=== PATIENT | male | born 1965 | race Caucasian/White ===

== ENCOUNTER 2020-05-05 12:01 | Emergency (ER) | payer OTHER ==
[2020-05-05 12:10] VITALS: BP 125/85; PULSE 101; RESP 18; TEMP 98.6
[2020-05-05] MEDS ORDERED: cefTRIAXone 1,000 MG VIAL (IM USE) IM STA (12:46)
[2020-05-05] MEDS ORDERED: ONDANSETRON 4 MG ODT STARTER PACK 2 TAB BTL PO STA (12:46)
[2020-05-05] MEDS ORDERED: AMOXIC-POT CLAV 875MG STARTER PACK 2 TAB BTL PO STA (12:53)
--- NOTE | 2020-05-05 12:54 | ED ---
ENT HPI - General Chief complaint: Dental/Oral Stated complaint: facial swelling Time Seen by Provider: 05/05/20 12:16 Source: patient, RN notes reviewed, old records reviewed Mode of arrival: ambulatory Limitations: no limitations - History of Present Illness Initial comments: This is a 54-year-old male presents to the ER today for evaluation for left- sided facial swelling, left side is sinus pain and tenderness Patient reports symptoms started 2 days ago starting with the gumline being swollen. Denies a fever. Denies any pain with extra ocular movements. He denies any chest pain shortness breath. She does complain of nausea. - Related Data Previous Rx's Medication Instructions Recorded Amoxic-Pot Clav 875-125Mg 1 tab PO Q12HR #20 tablet 05/05/20 [Augmentin 875-125] Allergies Allergy/AdvReac Type Severity Reaction Status Date / Time No Known Allergies Allergy Verified 05/05/20 12:10 Review of Systems ROS Statement: Those systems with pertinent positive or pertinent negative responses have been documented in the HPI. ROS Other: All systems not noted in ROS Statement are negative. Past Medical History Additional Past Medical History / Comment(s): back pain History of Any Multi-Drug Resistant Organisms: None Reported Past Surgical History: No Surgical Hx Reported Past Psychological History: No Psychological Hx Reported Smoking Status: Current every day smoker Past Alcohol Use History: None Reported Past Drug Use History: Marijuana General Exam - General Exam Comments Initial Comments: Alert and oriented 54-year-old male. Limitations: no limitations General appearance: alert, in no apparent distress Head exam: Present: atraumatic, normocephalic, normal inspection Eye exam: Present: normal appearance, PERRL, EOMI. Absent: scleral icterus, conjunctival injection, periorbital swelling ENT exam: Present: normal exam, other (tenderness over left maxillary sinus with swelling) Neck exam: Present: normal inspection. Absent: tenderness, meningismus, lymphadenopathy Respiratory exam: Present: normal lung sounds bilaterally. Absent: respiratory distress, wheezes, rales, rhonchi, stridor Extremities exam: Present: normal inspection, full ROM, normal capillary refill. Absent: tenderness, pedal edema, joint swelling, calf tenderness Back exam: Present: normal inspection Neurological exam: Present: alert, oriented X3, CN II-XII intact Psychiatric exam: Present: normal affect, normal mood Course Vital Signs 05/05/20 05/05/20 12:07 13:02 Temperature 98.6 F 98.6 F Pulse Rate 101 H 101 H Respiratory 18 18 Rate Blood Pressure 125/85 125/85 O2 Sat by Pulse 99 99 Oximetry Medical Decision Making - Medical Decision Making This is a 54-year-old male presents emergency department today for left-sided facial pain and swelling 2 days. At this time Patient has tenderness and pain over the maxillary sinus. Discussed treatment for sinusitis with antibiotic. He was given IM Rocephin as well as Zofran for nausea and emergency department. Advised the Patient to return if he has high fevers worsening pain or symptoms despite antibiotics after 2 days. We'll discharge the Patient with Augmentin and advised close follow up with PCP. All questions answered. Disposition Clinical Impression: Sinusitis Disposition: HOME SELF-CARE Condition: Good Instructions (If sedation given, give patient instructions): Sinusitis (ED) Additional Instructions: Please use medication as discussed. Please follow up with family doctor if symptoms have not improved over the next two days. Please return to the emergency room if your symptoms increase or worsen or for any other concerns. Prescriptions: Amoxic-Pot Clav 875-125Mg [Augmentin 875-125] 1 tab PO Q12HR #20 tablet Is patient prescribed a controlled substance at d/c from ED?: No Referrals: None,Stated [Primary Care Provider] - 1-2 days Time of Disposition: 12:53
== END 2020-05-05 13:03 | disposition home or self-care (01) ==
LOC: EC 12:01
DX: J32.9 Chronic sinusitis, unspecified (principal); R11.0 Nausea; F17.200 Nicotine dependence, unspecified, uncomplicated
CPT/HCPCS: 99283; 96372; J0696; S0119

== ENCOUNTER 2023-06-24 05:53 | Emergency (ER) | payer OTHER ==
[2023-06-24] MEDS: SODIUM CHLORIDE 0.9% 1,000 ML IV STA (06:33)
[2023-06-24] MEDS: ONDANSETRON 4 MG/2 ML VIAL IVP STA (06:33)
--- NOTE | 2023-06-24 06:35 | ED ---
GI Bleed HPI - General Chief complaint: GI Bleed Stated complaint: Rectal bleeding Time Seen by Provider: 06/24/23 06:10 Source: patient, RN notes reviewed Mode of arrival: ambulatory Limitations: no limitations - History of Present Illness Initial comments: This is a 57-year-old male who presents to the emergency department for rectal bleeding. States that this has been occurring intermittently for the last 5 days. He has a history of bleeding from hemorrhoids, which he believes is the cause of this. Denies any pain associated with this. He has been using [id number] Preparation H. States that when he woke up this morning he felt like he needed to pass gas, and in the process a large amount of blood was produced. Not taking any blood thinners. While being triaged in the nursing villa and explaining his symptoms, patient had a syncopal episode. He lost control of his bladder in the process and became diaphoretic. Patient also fe els nauseous. - Related Data Previous Rx's Medication Instructions Recorded Amoxic-Pot Clav 875-125Mg 1 tab PO Q12HR #20 tablet 05/05/20 [Augmentin 875-125] Hydrocortisone Suppository 25 mg RECTAL BID #24 suppositor 06/24/23 [Anusol-Hc] lisa Rodriguez [Tucks Medicated Pads] 1 pad TOPICAL DIRECTED PRN #100 06/24/23 pad Allergies Allergy/AdvReac Type Severity Reaction Status Date / Time No Known Allergies Allergy Verified 06/24/23 06:03 Review of Systems ROS Statement: Those systems with pertinent positive or pertinent negative responses have been documented in the HPI. ROS Other: All systems not noted in ROS Statement are negative. Past Medical History Additional Past Medical History / Comment(s): back pain History of Any Multi-Drug Resistant Organisms: None Reported Past Surgical History: No Surgical Hx Reported Past Psychological History: No Psychological Hx Reported Smoking Status: Current every day smoker Past Alcohol Use History: None Reported Past Drug Use History: Marijuana General Exam Limitations: no limitations General appearance: alert, in no apparent distress Head exam: Present: atraumatic, normocephalic, normal inspection Respiratory exam: Present: normal lung sounds bilaterally. Absent: respiratory distress, wheezes, rales, rhonchi, stridor Cardiovascular Exam: Present: regular rate, normal rhythm, normal heart sounds. Absent: systolic murmur, diastolic murmur, rubs, gallop, clicks Rectal exam: Present: other (Thrombosed external hemorrhoid with evidence of recent active bleeding) Neurological exam: Present: alert, oriented X3, CN II-XII intact Psychiatric exam: Present: normal affect, normal mood Course Vital Signs 06/24/23 06/24/23 06/24/23 06:04 06:22 07:07 Temperature 97.7 F Pulse Rate 83 75 65 Respiratory 22 17 16 Rate Blood Pressure 115/70 116/72 116/76 O2 Sat by Pulse 98 97 98 Oximetry Medical Decision Making - Medical Decision Making This is a 57 year old male who presents to the emergency department for rectal bleeding. Was pt. sent in by a medical professional or institution? @ -No Did you speak to anyone other than the patient for history? @ -No Did you review nursing and triage notes? @ -Yes, and I agree, it is accurate with regards to the patient's symptoms. Were old charts reviewed? @ -No Differential Diagnosis? @ -Differential GI Bleed: Esophageal varices, aortoenteric fistula, Emily-Jaffe, gastritis, peptic ulcer disease, diverticulosis, inflammatory bowel disease, hemorrhoids, fissure, c olitis, malignancy, Meckels diverticulum, this is not meant to be an all- inclusive list. EKG interpreted by me (3pts min.)? @ -EKG interpreted by me demonstrating the following: Sinus rhythm. Ventricular rate 70 bpm, MS interval 152 ms, QRS duration 98 ms, QTc 401 ms. X-rays interpreted by me (1pt min.)? @ -Not obtained CT interpreted by me (1pt min.)? @ -Not obtained U/S interpreted by me (1pt. min.)? @ -Not obtained What testing was considered but not performed? (CT, X-rays, U/S, labs)? Why? @ -None What meds were considered but not given? Why? @ -None Did you discuss the management of the patient with other professionals? @ -No Did you reconcile home meds? @ -No Was smoking cessation discussed for >3mins.? @ -I discussed smoking cessation for greater than 3 minutes. The risk of smoking were discussed with the patient including but not limited to risks of cancer, stroke, coronary artery disease and COPD. Also discussed with patient were multiple methods of quitting smoking. Lastly we discussed the financial cost of smoking. Was critical care preformed (if so, how long)? @ -No Were there social determinants of health that impacted care today? How? (Homelessness, low income, unemployed, alcoholism, drug addiction, transportation, low edu. Level, literacy, decrease access to med. care, penitentiary, rehab)? @ -No Was there de-escalation of care discussed even if they declined? (Discuss DNR or withdrawal of care, Hospice)? @ -No What co-morbidities impacted this encounter? (DM, HTN, Smoking, COPD, CAD, Cancer, CVA, Hep., AIDS, mental health diagnosis, sleep apnea, morbid obesity)? @ -Smoking Was patient admitted / discharged? @ -Discharged. On exam, patient had an external hemorrhoid that was thrombosed with minor active bleeding. Lab work obtained and found to be unremarkable. Advised that we are not going to try to excise or manipulate the hemorrhoid in the emergency department due to the risk of making it worse. Patient is also not in any pain, he is only dealing with the residual bleeding, which is not severe at this time. Prescription for hydrocortisone suppositories and witch delphine pads provided with dosing instructions reviewed. Advised sitz bath's, cool compresses, Preparation H, and stool softeners to avoid constipation and straining, which we discussed can make this worse. Information for general surgery follow-up provided. Patient discharged home in stable condition. Undiagnosed new problem with uncertain prognosis? @ -None Drug Therapy requiring intensive monitoring for toxicity (Heparin, Nitro, Insulin, Cardizem)? @ -None Were any procedures done? @ -None Diagnosis/symptom? @ -Bleeding external hemorrhoid Acute, or Chronic, or Acute on Chronic? @ -Acute Uncomplicated (without systemic symptoms) or Complicated (systemic symptoms)? @ -Uncomplicated Side effects of treatment? @ -None Exacerbation, Progression, or Severe Exacerbation] @ -Not applicable Poses a threat to life or bodily function? @ -No Return precautions reviewed in depth, the patient is instructed to return to the emergency department with any new, worsening, or concerning symptoms. Patient verbalized understanding. This case was discussed in detail with the attending ED physician, Dr. Prince. Presentation, findings, and treatment plan discussed in detail as well. - Lab Data Result diagrams: 06/24/23 06:30 06/24/23 06:30 Lab Results 06/24/23 06/24/23 06/24/23 Range/Units 06:30 06:30 06:30 WBC 9.7 (3.8-10.6) k/uL RBC 4.87 (4.30-5.90) m/uL Hgb 14.9 (13.0-17.5) gm/dL Hct 43.9 (39.0-53.0) % MCV 90.0 (80.0-100.0) fL MCH 30.5 (25.0-35.0) pg MCHC 33.9 (31.0-37.0) g/dL RDW 14.8 (11.5-15.5) % Plt Count 259 (150-450) k/uL MPV 8.3 Neutrophils % 49 % Lymphocytes % 40 % Monocytes % 5 % Eosinophils % 3 % Basophils % 1 % Neutrophils # 4.8 (1.3-7.7) k/uL Lymphocytes # 3.8 (1.0-4.8) k/uL Monocytes # 0.5 (0-1.0) k/uL Eosinophils # 0.3 (0-0.7) k/uL Basophils # 0.1 (0-0.2) k/uL PT 10.1 (10.0-12.5) sec INR 0.9 (<1.2) APTT 21.6 L (22.0-30.0) sec Sodium 138 (137-145) mmol/L Potassium 3.8 (3.5-5.1) mmol/L Chloride 111 H (98-107) mmol/L Carbon Dioxide 18 L (22-30) mmol/L Anion Gap 9 mmol/L BUN 20 (9-20) mg/dL Creatinine 1.03 (0.66-1.25) mg/dL Est GFR (CKD-EPI)AfAm >90 (>60 ml/min/1.73 sqM) Est GFR (CKD-EPI)NonAf 81 (>60 ml/min/1.73 sqM) Glucose 128 H (74-99) mg/dL Plasma Lactic Acid Yang (0.7-2.0) mmol/L Calcium 9.2 (8.4-10.2) mg/dL Magnesium 2.2 (1.6-2.3) mg/dL Total Bilirubin 0.7 (0.2-1.3) mg/dL AST 25 (17-59) U/L ALT 15 (4-49) U/L Alkaline Phosphatase 104 (38-126) U/L Troponin I (0.000-0.034) ng/mL Total Protein 7.0 (6.3-8.2) g/dL Albumin 4.1 (3.5-5.0) g/dL Blood Type Blood Type Confirm Blood Type Recheck Bld Type Recheck Status Antibody Screen Spec Expiration Date 06/24/23 06/24/23 06/24/23 Range/Units 06:30 06:30 06:30 WBC (3.8-10.6) k/uL RBC (4.30-5.90) m/uL Hgb (13.0-17.5) gm/dL Hct (39.0-53.0) % MCV (80.0-100.0) fL MCH (25.0-35.0) pg MCHC (31.0-37.0) g/dL RDW (11.5-15.5) % Plt Count (150-450) k/uL MPV Neutrophils % % Lymphocytes % % Monocytes % % Eosinophils % % Basophils % % Neutrophils # (1.3-7.7) k/uL Lymphocytes # (1.0-4.8) k/uL Monocytes # (0-1.0) k/uL Eosinophils # (0-0.7) k/uL Basophils # (0-0.2) k/uL PT (10.0-12.5) sec INR (<1.2) APTT (22.0-30.0) sec Sodium (137-145) mmol/L Potassium (3.5-5.1) mmol/L Chloride (98-107) mmol/L Carbon Dioxide (22-30) mmol/L Anion Gap mmol/L BUN (9-20) mg/dL Creatinine (0.66-1.25) mg/dL Est GFR (CKD-EPI)AfAm (>60 ml/min/1.73 sqM) Est GFR (CKD-EPI)NonAf (>60 ml/min/1.73 sqM) Glucose (74-99) mg/dL Plasma Lactic Acid Yang 1.4 (0.7-2.0) mmol/L Calcium (8.4-10.2) mg/dL Magnesium (1.6-2.3) mg/dL Total Bilirubin (0.2-1.3) mg/dL AST (17-59) U/L ALT (4-49) U/L Alkaline Phosphatase (38-126) U/L Troponin I <0.012 (0.000-0.034) ng/mL Total Protein (6.3-8.2) g/dL Albumin (3.5-5.0) g/dL Blood Type O Negative Blood Type Confirm Blood Type Recheck No Previous Record Bld Type Recheck Status CABO Indicated Antibody Screen NEGATIVE Spec Expiration Date 06/27/2023 - 232906/24/23 Range/Units 06:37 WBC (3.8-10.6) k/uL RBC (4.30-5.90) m/uL Hgb (13.0-17.5) gm/dL Hct (39.0-53.0) % MCV (80.0-100.0) fL MCH (25.0-35.0) pg MCHC (31.0-37.0) g/dL RDW (11.5-15.5) % Plt Count (150-450) k/uL MPV Neutrophils % % Lymphocytes % % Monocytes % % Eosinophils % % Basophils % % Neutrophils # (1.3-7.7) k/uL Lymphocytes # (1.0-4.8) k/uL Monocytes # (0-1.0) k/uL Eosinophils # (0-0.7) k/uL Basophils # (0-0.2) k/uL PT (10.0-12.5) sec INR (<1.2) APTT (22.0-30.0) sec Sodium (137-145) mmol/L Potassium (3.5-5.1) mmol/L Chloride (98-107) mmol/L Carbon Dioxide (22-30) mmol/L Anion Gap mmol/L BUN (9-20) mg/dL Creatinine (0.66-1.25) mg/dL Est GFR (CKD-EPI)AfAm (>60 ml/min/1.73 sqM) Est GFR (CKD-EPI)NonAf (>60 ml/min/1.73 sqM) Glucose (74-99) mg/dL Plasma Lactic Acid Yang (0.7-2.0) mmol/L Calcium (8.4-10.2) mg/dL Magnesium (1.6-2.3) mg/dL Total Bilirubin (0.2-1.3) mg/dL AST (17-59) U/L ALT (4-49) U/L Alkaline Phosphatase (38-126) U/L Troponin I (0.000-0.034) ng/mL Total Protein (6.3-8.2) g/dL Albumin (3.5-5.0) g/dL Blood Type Blood Type Confirm O Negative Blood Type Recheck Bld Type Recheck Status Antibody Screen Spec Expiration Date Disposition Clinical Impression: Nicotine dependence, External hemorrhoid, bleeding Disposition: HOME SELF-CARE Instructions (If sedation given, give patient instructions): Hemorrhoids (ED) Additional Instructions: Return to the emergency department with any new, worsening, or concerning symptoms. Use the Proctosol cream provided on the hemorrhoid 2-4 times daily. Continue to use the Preparation H 4 times daily as well. Apply the hydrocorti sone suppositories twice daily and use the witch delphine pads after each bowel movement or up to 6 times daily. Take sitz bath's and apply cool compresses. Increase your dietary fiber and take a stool softener to prevent straining and constipation. Follow up with your primary care provider in 1-2 days. Contact the general surgery office listed below for a follow up appointment. Prescriptions: Hydrocortisone Suppository [Anusol-Hc] 25 mg RECTAL BID #24 suppositor witch Delphine [Tucks Medicated Pads] 1 pad TOPICAL DIRECTED PRN #100 pad PRN Reason: Hemorrhoids Is patient prescribed a controlled substance at d/c from ED?: No Referrals: None,Stated [Primary Care Provider] - 1-2 days Anand Mohamud MD [STAFF PHYSICIAN] - 1-2 days Time of Disposition: 07:46
[2023-06-24 06:47] LABS: Basophils # (A) 0.1 k/uL (0-0.2); Basophils % (A) 1 %; Eosinophils # (A) 0.3 k/uL (0-0.7); Eosinophils % (A) 3 %; HCT 43.9 % (39.0-53.0); HGB 14.9 gm/dL (13.0-17.5); Lymphocytes # (A) 3.8 k/uL (1.0-4.8); Lymphocytes % (A) 40 %; MCH 30.5 pg (25.0-35.0); MCHC 33.9 g/dL (31.0-37.0); Mean Platelet Volume 8.3; Monocytes # (A) 0.5 k/uL (0-1.0); Monocytes % (A) 5 %; Neutrophils # (A) 4.8 k/uL (1.3-7.7); Neutrophils % (A) 49 %; Platelet Count 259 k/uL (150-450); RBC 4.87 m/uL (4.30-5.90); RDW 14.8 % (11.5-15.5); WBC 9.7 k/uL (3.8-10.6)
[2023-06-24] MEDS: HYDROCORTISONE 2.5% RECTAL CREAM 30 GM TUBE RECTAL STA (07:00)
[2023-06-24 07:06] LABS: INR 0.9 (<1.2); Prothrombin Time 10.1 sec (10.0-12.5)
[2023-06-24 07:08] LABS: Partial Thromboplastin Time 21.6 sec (22.0-30.0)
[2023-06-24 07:17] LABS: ALT 15 U/L (4-49); AST 25 U/L (17-59); African American GFR (CKD) >90 (>60 ml/min/1.73 sqM); Albumin 4.1 g/dL (3.5-5.0); Alkaline Phosphatase 104 U/L (38-126); Anion Gap 9 mmol/L; Blood Urea Nitrogen 20 mg/dL (9-20); Calcium 9.2 mg/dL (8.4-10.2); Carbon Dioxide 18 mmol/L (22-30); Chloride 111 mmol/L (98-107); Glucose 128 mg/dL (74-99); Magnesium 2.2 mg/dL (1.6-2.3); Non-African American GFR(CKD) 81 (>60 ml/min/1.73 sqM); Potassium 3.8 mmol/L (3.5-5.1); Sodium 138 mmol/L (137-145); Total Bilirubin 0.7 mg/dL (0.2-1.3)
[2023-06-24] MEDS: ONDANSETRON 4 MG ODT STARTER PACK 2 TAB BTL PO STA (07:57)
[2023-06-24] MEDS: HYDROCORTISONE SUPPOSITORY 25 MG SUPP RECTAL STA (07:58)
[2023-06-24 08:06] VITALS: BP 114/84; PULSE 76; RESP 18; TEMP 98.2
== END 2023-06-24 08:06 | disposition home or self-care (01) ==
LOC: EC 05:53
DX: K64.5 Perianal venous thrombosis (principal); F17.200 Nicotine dependence, unspecified, uncomplicated; F12.90 Cannabis use, unspecified, uncomplicated
CPT/HCPCS: 99285; 96374; 99406; 96361; 36415; 93005; 86900; 86901; 80053; 83605; 83735; 84484; 85025; 85610; 85730; 86850; J2405; S0119

== ENCOUNTER 2024-04-16 16:11 | Emergency (ER) | payer OTHER ==
[2024-04-16 16:23] VITALS: TEMP 98.3
[2024-04-16] MEDS: SODIUM CHLORIDE 0.9% 1,000 ML IV ONE (17:44)
[2024-04-16] MEDS: KETOROLAC 15 MG/ML 1 ML VIAL IVP STA (17:45)
[2024-04-16] MEDS: MORPHINE SULFATE 4 MG/ML SYRINGE IVP STA (17:46)
--- NOTE | 2024-04-16 17:46 | ED ---
Skin/Abscess/FB HPI - General Chief complaint: Skin/Abscess/Foreign Body Stated complaint: spider bite,arm swelling L Time Seen by Provider: 04/16/24 17:05 Source: patient Mode of arrival: ambulatory Limitations: no limitations - History of Present Illness Initial comments: 58-year-old male senting with chief complaint of pain and swelling to the left arm. States that a few days ago he noticed a small bump on posterior forearm which he assumed was a bug bite. It is that yesterday was a bit larger and more painful and today it is much larger and extremely painful. He has pain that travels up his arm. No fevers. The area is quite firm red as well. He was able to express a very small amount of pus earlier, no further drainage - Related Data Previous Rx's Medication Instructions Recorded Amoxic-Pot Clav 875-125Mg 1 tab PO Q12HR #20 tablet 05/05/20 [Augmentin 875-125] Hydrocortisone Suppository 25 mg RECTAL BID #24 suppositor 06/24/23 [Anusol-Hc] witch Michael [Tucks Medicated Pads] 1 pad TOPICAL DIRECTED PRN #100 06/24/23 pad Cephalexin [Keflex] 500 mg PO Q6HR 10 Days #40 cap 04/16/24 Sulfamethox-Tmp 800-160Mg [Bactrim 1 tab PO Q12HR 10 Days #20 tab 04/16/24 DS 800-160 mg] Allergies Allergy/AdvReac Type Severity Reaction Status Date / Time No Known Allergies Allergy Verified 04/16/24 16:23 Review of Systems ROS Statement: Those systems with pertinent positive or pertinent negative responses have been documented in the HPI. ROS Other: All systems not noted in ROS Statement are negative. Past Medical History Additional Past Medical History / Comment(s): back pain History of Any Multi-Drug Resistant Organisms: None Reported Past Surgical History: No Surgical Hx Reported Past Psychological History: No Psychological Hx Reported Smoking Status: Current every day smoker Past Alcohol Use History: None Reported Past Drug Use History: Marijuana General Exam Limitations: no limitations General appearance: alert, in no apparent distress Head exam: Present: atraumatic, normocephalic, normal inspection Eye exam: Present: normal appearance, EOMI Neck exam: Present: normal inspection. Absent: meningismus Respiratory exam: Absent: respiratory distress Cardiovascular Exam: Present: regular rate Neurological exam: Present: alert, oriented X3 Psychiatric exam: Present: normal affect, normal mood Expanded Type of lesion: Present: abscess (Left posterior forearm) Course Vital Signs 04/16/24 04/16/24 04/16/24 16:22 18:52 19:27 Temperature 98.3 F Pulse Rate 97 70 71 Respiratory 16 18 18 Rate Blood Pressure 129/86 124/76 115/78 O2 Sat by Pulse 99 94 L 99 Oximetry Medical Decision Making - Medical Decision Making Was pt. sent in by a medical professional or institution (, [facility], [facility], urgent care, hospital, or fci...) When possible be specific @ -No Did you speak to anyone other than the patient for history (EMS, parent, family, police, friend...)? What history was obtained from this source @ -No Did you review nursing and triage notes (agree or disagree)? Why? @ -I reviewed and agree with nursing and triage notes Were old charts reviewed (outside hosp., previous admission, EMS record, old EKG, old radiological studies, urgent care reports/EKG's, fci records)? Report findings @ -No old charts were reviewed Differential Diagnosis (chest pain, altered mental status, abdominal pain women, abdominal pain men, vaginal bleeding, weakness, fever, dyspnea, syncope, headache, dizziness, GI bleed, back pain, seizure, CVA, palpatations, mental health, musculoskeletal)? @ -Differential includes cellulitis, abscess, allergic reaction, not an all- inclusive list EKG interpreted by me (3pts min.). @ -As above X-rays interpreted by me (1pt min.). @ -None done CT interpreted by me (1pt min.). @ -None done U/S interpreted by me (1pt. min.). @ -Ultrasound shows subcutaneous edema and tiny fluid collection measuring 0.7 x 0.4 x 0.9 cm. No drainable fluid collection/abscess What testing was considered but not performed or refused? (CT, X-rays, U/S, labs)? Why? @ -None What meds were considered but not given or refused? Why? @ -None Did you discuss the management of the patient with other professionals (professionals i.e. , [facility], [facility], lab, RT, psych nurse, school social worker, medic technician, teacher, police officer booking, ed case manager)? Give summary @ -No Was smoking cessation discussed for >3mins.? @ -No Was critical care preformed (if so, how long)? @ -No Were there social determinants of health that impacted care today? How? (Homelessness, low income, unemployed, alcoholism, drug addiction, transportation, low edu. Level, literacy, decrease access to med. care, senior care, rehab)? @ -No Was there de-escalation of care discussed even if they declined (Discuss DNR or withdrawal of care, Hospice)? DNR status @ -No What co-morbidities impacted this encounter? (DM, HTN, Smoking, COPD, CAD, Cancer, CVA, ARF, Chemo, Hep., AIDS, mental health diagnosis, sleep apnea, morbid obesity)? @ -None Was patient admitted / discharged? Hospital course, mention meds given and route, prescriptions, significant lab abnormalities, going to OR and other pertinent info. @ -58-year-old male presenting with chief complaint of pain redness and swelling to the left posterior forearm. This started as what he assumed was a bug bite and has progressively worsened over the past few days. No fever. Attempted to incise and drain the area, was not able to express any purulent material. White count of 11.3. CRP is normal at 0.9. Ultrasound does show ti ny fluid collection. I discussed today's results with patient. I advised that he should be admitted for observation and IV antibiotics. Patient refused stating he has to work tomorrow. He is of sound mind and body and able to make his own decisions. I explained to the patient that this may result in or permanent injury, patient conveys verbal understanding. Patient signed out AMA. Patient will be sent home with Bactrim and Keflex, provided with strict return parameters. Follow-up with PCP. Report back to ER with any new or worsening symptoms. Discussed return parameters and answered all questions. Patient conveyed verbal understanding and agreed to the plan. I discussed this case in detail with my attending Dr. Prince Undiagnosed new problem with uncertain prognosis? @ -No Drug Therapy requiring intensive monitoring for toxicity (Heparin, Nitro, Insulin, Cardizem)? @ -No Were any procedures done? @ -No Diagnosis/symptom? @ -Abscess Acute, or Chronic, or Acute on Chronic? @ -Acute Uncomplicated (without systemic symptoms) or Complicated (systemic symptoms)? @ -complicated Side effects of treatment? @ -No Exacerbation, Progression, or Severe Exacerbation? @ -No Poses a threat to life or bodily function? How? (Chest pain, [place], [place], pneumonia, PE, COPD, DKA, ARF, appy, cholecystitis, CVA, Diverticulitis, Homicidal, Suicidal, threat to staff... and all critical care pts) @ -Yes - Lab Data Result diagrams: 04/16/24 17:44 04/16/24 17:44 Lab Results 04/16/24 04/16/24 04/16/24 Range/Units 17:44 17:44 17:44 WBC 11.3 H (3.8-10.6) k/uL RBC 4.89 (4.30-5.90) m/uL Hgb 14.9 (13.0-17.5) gm/dL Hct 44.3 (39.0-53.0) % MCV 90.5 (80.0-100.0) fL MCH 30.5 (25.0-35.0) pg MCHC 33.8 (31.0-37.0) g/dL RDW 14.3 (11.5-15.5) % Plt Count 210 (150-450) k/uL MPV 7.6 Neutrophils % 75 % Lymphocytes % 17 % Monocytes % 4 % Eosinophils % 1 % Basophils % 0 % Neutrophils # 8.5 H (1.3-7.7) k/uL Lymphocytes # 2.0 (1.0-4.8) k/uL Monocytes # 0.5 (0-1.0) k/uL Eosinophils # 0.2 (0-0.7) k/uL Basophils # 0.1 (0-0.2) k/uL Sodium 137 (137-145) mmol/L Potassium 4.3 (3.5-5.1) mmol/L Chloride 104 (98-107) mmol/L Carbon Dioxide 24 (22-30) mmol/L Anion Gap 9 mmol/L BUN 14 (9-20) mg/dL Creatinine 1.15 (0.66-1.25) mg/dL Est GFR (CKD-EPI)AfAm 81 (>60 ml/min/1.73 sqM) Est GFR (CKD-EPI)NonAf 70 (>60 ml/min/1.73 sqM) Glucose 96 (74-99) mg/dL Plasma Lactic Acid Yang 0.8 (0.7-2.0) mmol/L Calcium 9.2 (8.4-10.2) mg/dL Total Bilirubin 1.2 (0.2-1.3) mg/dL AST 24 (17-59) U/L ALT 12 (4-49) U/L Alkaline Phosphatase 89 (38-126) U/L C-Reactive Protein 0.9 (<1.0) mg/dL Total Protein 6.9 (6.3-8.2) g/dL Albumin 4.2 (3.5-5.0) g/dL Disposition Clinical Impression: Abscess Disposition: LEFT AGAINST MEDICAL ADVICE Condition: Fair Instructions (If sedation given, give patient instructions): Abscess (ED) Additional Instructions: Follow-up with PCP. Report back to ER with any new or worsening symptoms, including but not limited to fever, increased swelling, vomiting. Take medication as prescribed. Hold hot compresses over the area for 10 to 15 minutes at a time 6-8 times daily. It is important that you recognize that you are leaving AGAINST MEDICAL ADVICE today. We advise that you stay in the hospital for IV antibiotics to ensure that your infection is improving. By leaving you acknowledge that this can result in or permanent injury. Prescriptions: Sulfamethox-Tmp 800-160Mg [Bactrim DS 800-160 mg] 1 tab PO Q12HR 10 Days #20 tab Cephalexin [Keflex] 500 mg PO Q6HR 10 Days #40 cap Is patient prescribed a controlled substance at d/c from ED?: No Referrals: None,Stated [Primary Care Provider] - 1-2 days Forms: Area PCPs Time of Disposition: 19:00
[2024-04-16 17:59] LABS: Basophils # (A) 0.1 k/uL (0-0.2); Basophils % (A) 0 %; Eosinophils # (A) 0.2 k/uL (0-0.7); Eosinophils % (A) 1 %; HCT 44.3 % (39.0-53.0); HGB 14.9 gm/dL (13.0-17.5); Lymphocytes % (A) 17 %; MCH 30.5 pg (25.0-35.0); MCHC 33.8 g/dL (31.0-37.0); MCV 90.5 fL (80.0-100.0); Mean Platelet Volume 7.6; Monocytes # (A) 0.5 k/uL (0-1.0); Monocytes % (A) 4 %; Neutrophils # (A) 8.5 k/uL (1.3-7.7); Neutrophils % (A) 75 %; Platelet Count 210 k/uL (150-450); RBC 4.89 m/uL (4.30-5.90); RDW 14.3 % (11.5-15.5); WBC 11.3 k/uL (3.8-10.6)
[2024-04-16 18:10] LABS: ALT 12 U/L (4-49); AST 24 U/L (17-59); African American GFR (CKD) 81 (>60 ml/min/1.73 sqM); Albumin 4.2 g/dL (3.5-5.0); Alkaline Phosphatase 89 U/L (38-126); Anion Gap 9 mmol/L; Blood Urea Nitrogen 14 mg/dL (9-20); C Reactive Protein 0.9 mg/dL (<1.0); Calcium 9.2 mg/dL (8.4-10.2); Carbon Dioxide 24 mmol/L (22-30); Chloride 104 mmol/L (98-107); Glucose 96 mg/dL (74-99); Non-African American GFR(CKD) 70 (>60 ml/min/1.73 sqM); Potassium 4.3 mmol/L (3.5-5.1); Sodium 137 mmol/L (137-145); Total Bilirubin 1.2 mg/dL (0.2-1.3); Total Protein 6.9 g/dL (6.3-8.2)
--- NOTE | 2024-04-16 18:42 | US ---
EXAMINATION TYPE: US extremity nonvasc mass LT DATE OF EXAM: 04/16/2024 COMPARISON: NONE CLINICAL INDICATION: Male, 58 years old with history of abscess; Pt states spider bite with pain and redness to left forearm TECHNIQUE: Left anterior forearm FINDINGS: Mild amount of subcutaneous edema with small superficial hypoechoic area left anterior for earm at redness and pain= 0.7 x 0.4 x 0.9 cm . No drainable fluid collection/abscess. IMPRESSION: Subcutaneous edema and tiny fluid collection measuring 0.7 x 0.4 x 0.9 cm. No drainable fluid collect ion/abscess. [facility], , 04/16/2024 6:40 PM
[2024-04-16 18:55] VITALS: RESP 18
[2024-04-16] MEDS: CEPHALEXIN 500 MG CAP PO STA (19:22)
[2024-04-16] MEDS: SULFAMETHOX-TMP 800-160MG 1 EACH TAB PO STA (19:23)
[2024-04-16] MEDS: SULFAMETH-TMP DS STARTER PACK 2 TAB BTL PO STA (19:23)
[2024-04-16] MEDS: CEPHALEXIN 500MG STARTER PACK 4 CAP BTL PO STA (19:23)
[2024-04-16 19:28] VITALS: BP 115/78; PULSE 71
== END 2024-04-16 19:28 | disposition left against medical advice (07) ==
LOC: EC 16:11
DX: L02.414 Cutaneous abscess of left upper limb (principal); F17.200 Nicotine dependence, unspecified, uncomplicated
CPT/HCPCS: 36415; 80053; 83605; 85025; 86140; 76882; 99284; 96374; 96375; 96361; J2270; J1885